=== PATIENT | female | born 1970 | race Caucasian/White ===

== ENCOUNTER 2016-07-10 20:39 | Emergency (ER) | payer BC, OTHER ==
[2016-07-10 20:45] VITALS: BP 138/73; PULSE 85; TEMP 98; BMI 33.7
[2016-07-10] MEDS ORDERED: KETOROLAC TROMETHAMINE 60 MG/2 ML VIAL IM ONE (21:46)
[2016-07-10] MEDS ORDERED: KETOROLAC TROMETHAMINE 60 MG/2 ML VIAL ONE (21:50)
--- NOTE | 2016-07-10 22:42 | PDOC ---
History of Present Illness - General Chief Complaint: Pain, Acute Stated Complaint: RT LEG PAIN Time Seen by Provider: 07/10/16 21:04 History Source: Patient Exam Limitations: No Limitations - History of Present Illness Initial Comments: 07/10/16 22:37 CC 1 week of pain to right calf radiating to thigh Occurred: reports: last week Severity: Yes: mild Lower Extremity Pain Location: right: leg Method of Injury: Yes: other (no injury) Modifying Factors: improves with: None Past History - Past Medical History Allergies/Adverse Reactions: Allergies Allergy/AdvReac Type Severity Reaction Status Date / Time No Known Allergies Allergy Verified 07/10/16 20:42 Home Medications: Ambulatory Orders NK [No Known Home Medication] 07/10/16 Anemia: No Suicide Attempt (Hx): No Other medical history: denies - Surgical History Abdominal Surgery: No - Psycho/Social/Smoking Cessation Hx Suicidal Ideation: No Smoking Status: Yes Smoking History: Never smoked Number of Cigarettes Smoked Daily: 3 Drug/Substance Use Hx: No Substance Use Type: None Review of Systems - Review of Systems Constitutional: Yes: Symptoms Reported. No: Chills, Fever, Malaise Respiratory: No: Symptoms reported, Cough, Shortness of Breath, SOB with Exertion, Stridor, Wheezing, Hemoptysis Cardiac (ROS): No: Symptoms Reported ABD/GI: No: Symptoms Reported : No: Symptoms Reported Musculoskeletal: Yes: Muscle Pain, Other (tender to post calf). No: Symptoms Reported Integumentary: No: Erythema Neurological: No: Symptoms reported *Physical Exam - Vital Signs Last Vital Signs Temp Pulse Resp BP Pulse Ox 98 F 85 18 138/73 100 07/10/16 20:43 07/10/16 20:43 07/10/16 20:43 07/10/16 20:43 07/10/16 20:43 - Physical Exam General Appearance: Yes: Appropriately Dressed, Apparent Distress HEENT: positive: Pharynx Normal. negative: TMs Normal Neck: positive: Supple. negative: Tender, Rigid Respiratory/Chest: positive: Chest Tender, Lungs Clear. negative: Normal Breath Sounds, Respiratory Distress Musculoskeletal: positive: Other (tender posterior calf righ with varicosities) ED Treatment Course - RADIOLOGY Radiology Studies Ordered: Category Date Time Status DUPLEX VASCUL US-1 LEG [US] Stat Ultrasound 07/10/16 21:47 Taken - Medications Given in the ED: ED Medications Discontinued Medications Generic Name Dose Route Start Last Admin Trade Name Gustavo PRN Reason Stop Dose Admin Ketorolac Tromethamine 60 mg 07/10/16 21:46 07/10/16 21:53 Toradol Injection - IM 07/10/16 21:47 60 mg ONCE ONE Administration Medical Decision Making - Medical Decision Making 07/10/16 22:40 feeling much better post toradol; Duplex negative for DVt *DC/Admit/Observation/Transfer Diagnosis at time of Disposition: Muscle strain of right lower leg Qualifiers: Encounter type: initial encounter Qualified Code(s): S86.911A - Strain of unspecified muscle(s) and tendon(s) at lower leg level, right leg, initial encounter - Discharge Dispostion Disposition: HOME Condition at time of disposition: Stable Admit: No - Patient Instructions Additional Instructions: naprosyn 2 times daily; see local MD 1 week if no better; rest area - Post Discharge Activity Work/School Note: Back to Work
== END 2016-07-10 22:35 | disposition home or self-care (01) ==
LOC: JERFT 20:39
PROC: 3E0233Z Introduction of Anti-inflammatory into Muscle, Percutaneous Approach (ICD-10-PCS; principal; 2016-07-10)
DX: S86.911A Strain of unspecified muscle(s) and tendon(s) at lower leg level, right leg, initial encounter (principal); X58.XXXA Exposure to other specified factors, initial encounter; Y93.89 Activity, other specified; Y92.89 Other specified places as the place of occurrence of the external cause
CPT/HCPCS: 93971-TC; 99281-25

== ENCOUNTER 2019-08-16 17:49 | Emergency (ER) | payer BC ==
[2019-08-16 18:04] VITALS: BP 160/79; PULSE 82; TEMP 98.1; BMI 35.4
[2019-08-16] MEDS ORDERED: ACETAMINOPHEN 325 MG TABLET (FP) PO ONE (18:22)
[2019-08-16] MEDS ORDERED: KETOROLAC TROMETHAMINE 60 MG/2 ML VIAL IM ONE (18:22)
[2019-08-16] MEDS ORDERED: ACETAMINOPHEN 500 MG TABLET (FP) ONE (18:26)
[2019-08-16] MEDS ORDERED: KETOROLAC TROMETHAMINE 60 MG/2 ML VIAL ONE (18:26)
--- NOTE | 2019-08-16 18:31 | PDOC ---
History of Present Illness - General Chief Complaint: Injury Stated Complaint: LT KNEE PAIN Time Seen by Provider: 08/16/19 18:14 History Source: Patient Exam Limitations: No Limitations (L knee pain X 3wks) Past History - Travel Traveled outside of the country in the last 30 days: No - Past Medical History Allergies/Adverse Reactions: Allergies Allergy/AdvReac Type Severity Reaction Status Date / Time No Known Allergies Allergy Verified 08/16/19 18:01 Home Medications: Ambulatory Orders Naproxen [Naprosyn -] 500 mg PO BID #30 tablet 07/10/16 Naproxen [Naprosyn -] 500 mg PO BID #14 tablet 08/16/19 Anemia: No - Surgical History Abdominal Surgery: No - Psycho Social/Smoking Cessation Hx Smoking Status: Yes Smoking History: Never smoked Number of Cigarettes Smoked Daily: 3 Hx Alcohol Use: No Drug/Substance Use Hx: No Substance Use Type: None Review of Systems - Review of Systems Constitutional: No: Chills, Fever Musculoskeletal: Yes: Joint Pain. No: Joint Swelling, Muscle Pain, Muscle Weakness *Physical Exam - Vital Signs Last Vital Signs Temp Pulse Resp BP Pulse Ox 98.1 F 82 18 160/79 98 08/16/19 18:01 08/16/19 18:01 08/16/19 18:01 08/16/19 18:01 08/16/19 18:01 - Physical Exam General Appearance: Yes: Nourished Respiratory/Chest: positive: Lungs Clear, Normal Breath Sounds Cardiovascular: positive: Regular Rhythm, Regular Rate, S1, S2 Extremity: positive: Normal Capillary Refill, Tender (tenderness in lateral joint line of left knee, FROM but with pain, no swelling noted). 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 Patient denies fever, chills or history excessive strenuous activity in the past month. She has no history of gout. Examination consist of mild tenderness in the lateral aspect of the knee joint. There is no swelling. She does have full range of motion but with pain. Her distal pulses intact. X-ray obtained. Pain control with orthopedic referrals follow-up Discharge - Discharge Information Problems reviewed: Yes Clinical Impression/Diagnosis: Knee pain, left Qualifiers: Chronicity: acute Qualified Code(s): M25.562 - Pain in left knee Condition: Stable Disposition: HOME - Admission No - Additional Discharge Information Prescriptions: Naproxen [Naprosyn -] 500 mg PO BID #14 tablet Prescription Drug Monitoring Program (I-STOP) results: I-STOP not reviewed - Follow up/Referral Referrals: Earnest Whipple MD [Staff Physician] - - Patient Discharge Instructions Patient Printed Discharge Instructions: DI for Knee Pain Additional Instructions: Your x-ray shows no acute fracture or dislocation. There are arthritic changes noted. Please follow-up orthopedic doctor for further evaluation. You may take Naprosyn as prescribed. Return to the emergency room if worsening symptoms occurs. - Post Discharge Activity
== END 2019-08-16 19:26 | disposition home or self-care (01) ==
LOC: JERFT 17:49
PROC: 3E0233Z Introduction of Anti-inflammatory into Muscle, Percutaneous Approach (ICD-10-PCS; principal; 2019-08-16)
DX: M25.562 Pain in left knee (principal); F17.210 Nicotine dependence, cigarettes, uncomplicated
CPT/HCPCS: 73562-TC-LT-FY; 99284-25